=== PATIENT | female | born 1995 | race American Indian/Alaskan Native ===

== ENCOUNTER 2017-02-20 06:24 | Day surgery (SDC) | payer BC ==
[2017-02-20] MEDS ORDERED: ATROPINE 0.1% (CARDIAC) ONE (08:19)
[2017-02-20] MEDS ORDERED: ADRENALIN ONE (08:20)
[2017-02-20] MEDS ORDERED: NITROSTAT SL ONE (08:20)
[2017-02-20] MEDS ORDERED: NACL 0.9% 500 ML 500 ML ONE (08:45)
--- NOTE | 2017-02-20 09:15 | Short Stay Summary ---
Short Stay Documentation Date of service: 02/20/17 - History H&P: obtained from office - Allergies and Medications Current Medications: Allergies coconut Allergy (Severe, Verified 02/20/17 07:07) Itching,swelling shrimp Allergy (Severe, Verified 02/20/17 07:07) Swelling clindamycin Allergy (Intermediate, Verified 02/20/17 07:07) Swelling latex Allergy (Intermediate, Verified 02/20/17 07:07) Swelling Home Medications Medication Instructions Recorded Confirmed Last Taken Type Amlodipine Besylate [Amlodipine 10 mg PO DAILY 02/20/17 02/20/17 02/19/17 History Besylate] Ethinyl Estradiol/Drospirenone 1 tab PO DAILY 02/20/17 02/20/17 02/19/17 History [Janiya 28] - Physical exam General appearance: no acute distress Integumentary: no rash HEENT: Atraumatic Lungs: Clear to auscultation Breasts: deferred Heart: Regular rate Gastrointestinal: normal Female Genitourinary: deferred Rectal Exam: deferred Extremities: no ischemia Neurological: Normal gait - Brief post op/procedure progress note Date of procedure: 02/20/17 Pre-op diagnosis: Syncope Post-op diagnosis: same Procedure: TTT Anesthesia: none Findings: See report Surgeon: ZENAIDA CHRISTENSEN Estimated blood loss: none Pathology: none Condition: stable - Hospital course Hospital course: Uneventful - Disposition Condition at discharge: Good Disposition: DC-01 TO HOME OR SELFCARE Short Stay Discharge Plan Activity: advance as tolerated Weight Bearing Status: Weight Bear as Tolerated Diet: low salt
[2017-02-20 09:26] VITALS: BP 137/65
--- NOTE | 2017-02-20 11:14 | Procedure Note ---
TILT TABLE TEST INDICATION FOR PROCEDURE: Syncope. ORDERING PHYSICIAN: Shyam Ferraro MD DESCRIPTION OF PROCEDURE: After obtaining written consent, the patient was brought to the porcelain enamel laborer area. The patient was securely placed on the tilt table test. The patient's blood pressure prior to tilting was 135/80 with a heart rate of 78 beats per minute. The patient was tilted to 85 degrees from horizontal. Ten minutes after tilting, her blood pressure was 144/96 with a heart rate of 80 beats per minute and no arrhythmias were recorded. The patient was given 0.4 mg of sublingual nitroglycerin. She was monitored for another 10 minutes in the upright position. The lowest recorded blood pressure was 135/91 and the highest recorded heart rate was 104 beats per minute, sinus tachycardia. The patient did not lose consciousness. She did feel dizzy. There were no episodes of bradycardia recorded. The patient was tilted back to horizontal with a blood pressure of 175/89 and a heart rate of 100 at the end of the procedure. IMPRESSION: This is a negative tilt table test with no evidence of a cardioinhibitory or vasodepressor response to nitroglycerin. RECOMMENDATION: Follow up with referring business operations director. JOB# [id number] DONNELL/CELIO
== END 2017-02-20 09:40 | disposition home or self-care (01) ==
LOC: CATHLABREC 06:24
PROVIDERS: ATTEND Internal Medicine
DX: R55 Syncope and collapse (principal); R00.2 Palpitations; Z88.1 Allergy status to other antibiotic agents; Z91.040 Latex allergy status; Z91.013 Allergy to seafood; Z91.018 Allergy to other foods
CPT/HCPCS: 93660; J7040; J0171; J0461

== ENCOUNTER 2020-11-21 06:46 | Emergency (ER) | payer SELFPAY ==
[2020-11-21 07:20] VITALS: BP 145/98
[2020-11-21] MEDS ORDERED: CYCLOBENZAPRINE 10 MG TAB PO ONE (11:07)
[2020-11-21] MEDS ORDERED: METOCLOPRAMIDE 10 MG/2 ML INJ IV ONE (11:07)
[2020-11-21] MEDS ORDERED: SODIUM CHLORIDE 0.9% 1000 ML 1,000 ML IV ONE (11:07)
[2020-11-21] MEDS ORDERED: diphenhydrAMINE 25 MG CAP PO ONE (11:08)
--- NOTE | 2020-11-21 11:11 | Emergency Department Report ---
HPI - General Chief Complaint: Headache Time Seen by Provider: 11/21/20 11:05 - HPI HPI: 25-year-old female with history of SLE currently on no medications presents complaining of a headache which has been ongoing for about 2 weeks. Patient states that it started with a dull ache in the back of her head with soreness/aching in her bilateral neck. This started 2 weeks ago and at the same time she apparently had a dry cough. After couple days she was tested for COVID-19 and the result was negative. However, she is continued to suffer from a persistent headache which she describes as a dull ache in the back of her head radiating to the bilateral nec. She denies any recent trauma. She states that with the headache she feels slightly nauseated but has not vomited. She has been taking ibuprofen 800 mg 4 times daily as well as Tylenol for the headache. This morning when she woke up the headache was particularly severe and she was sick of the ongoing headache so she decided to come in for further evaluation. Other than mild nausea she denies any other associated symptoms including fever/chills, vision change, back pain, chest pain, cough, shortness of breath, sore throat, abdominal pain, vomiting, focal weakness, sensory changes, neck stiffness/difficult with ROM, dysuria, or any other complaints. Her LMP started on Thursday. ED Past Medical Hx - Past Medical History Previous Medical History?: Yes Hx Hypertension: Yes (2012) Hx Heart Attack/AMI: No Hx Congestive Heart Failure: No Hx Diabetes: No Hx Sickle Cell Disease: Yes (Trait) Hx Seizures: Yes (2011) Additional medical history: SLE - Surgical History Past Surgical History?: Yes Hx Cholecystectomy: Yes (2012) - Social History Smoking Status: Former Smoker - Medications Home Medications: Home Medications Medication Instructions Recorded Confirmed Last Taken Type Amlodipine Besylate 10 mg PO DAILY 02/20/17 02/20/17 02/19/17 History Ethinyl Estradiol/Drospirenone 1 tab PO DAILY 02/20/17 02/20/17 02/19/17 History [Janiya 28] Cyclobenzaprine [Flexeril] 10 mg PO TID PRN #21 tablet 11/21/20 Unknown Rx Metoclopramide [Reglan] 10 mg PO TID PRN #15 tab 11/21/20 Unknown Rx ED Review of Systems ROS: Stated complaint: SEVERE HEADACHE Other details as noted in HPI Constitutional: denies: chills, fever Eyes: denies: eye pain, vision change ENT: denies: throat pain, congestion Respiratory: denies: cough, shortness of breath Cardiovascular: denies: chest pain, palpitations Gastrointestinal: nausea. denies: abdominal pain, vomiting, diarrhea, constipation, melena Genitourinary: denies: dysuria, frequency, abnormal menses Musculoskeletal: denies: back pain, joint swelling Skin: denies: rash Neurological: headache. denies: weakness, numbness, paresthesias, confusion, vertigo Physical Exam - Physical Exam Vital Signs: Vital Signs 11/21/20 07:19 Temperature 98.4 F Pulse Rate 78 Respiratory 18 Rate Blood Pressure 145/98 [Right] O2 Sat by Pulse 100 Oximetry Physical Exam: GENERAL: Well developed and well nourished. No acute distress HEENT: Normocephalic. No obvious signs of trauma. Slightly dry mucous membranes. EYES: Extraocular movements are intact. Pupils are equal round and reactive to light bilaterally NECK: Supple. FROM is intact. Trachea is midline. LUNGS: Nonlabored breathing. Equal chest rise bilaterally. Clear to auscultation bilaterally. HEART/CARDIOVASCULAR: Regular rate and rhythm. No murmurs or rubs. VASCULAR: 2+ peripheral pulses. Cap refill < 2 seconds ABDOMEN: Abdomen is soft and nondistended. There is no significant tenderness, guarding or rebound. SKIN: Skin is warm and dry NEURO: Patient is awake, alert, and oriented. batter out II-XII grossly intact. No focal deficits. Normal motor and sensory exam throughout. Normal speech. Normal FNF MUSCULOSKELETAL: No obvious deformities. No significant tenderness. Normal ROM throughout. BACK/SPINE: No midline tenderness or step-offs of the C/T/L spine. Minimal if any tenderness over the bilateral paraspinous muscles in the cervical region ED Course Vital Signs 11/21/20 07:19 Temperature 98.4 F Pulse Rate 78 Respiratory 18 Rate Blood Pressure 145/98 [Right] O2 Sat by Pulse 100 Oximetry ED Medical Decision Making - Lab Data Result diagrams: 11/21/20 11:17 11/21/20 11:17 Lab Results 11/21/20 11/21/20 11/21/20 Range/Units 11:17 11:17 11:17 WBC 5.9 (4.5-11.0) K/mm3 RBC 4.27 (3.65-5.03) M/mm3 Hgb 12.1 (10.1-14.3) gm/dl Hct 36.1 (30.3-42.9) % MCV 85 (79-97) fl MCH 28 (28-32) pg MCHC 34 (30-34) % RDW 16.1 H (13.2-15.2) % Plt Count 434 (140-440) K/mm3 Lymph % (Auto) 22.7 (13.4-35.0) % Liberty % (Auto) 7.9 H (0.0-7.3) % Eos % (Auto) 0.4 (0.0-4.3) % Baso % (Auto) 1.0 (0.0-1.8) % Lymph # (Auto) 1.3 (1.2-5.4) K/mm3 Liberty # (Auto) 0.5 (0.0-0.8) K/mm3 Eos # (Auto) 0.0 (0.0-0.4) K/mm3 Baso # (Auto) 0.1 (0.0-0.1) K/mm3 Seg Neutrophils % 68.0 (40.0-70.0) % Seg Neutrophils # 4.0 (1.8-7.7) K/mm3 Sodium 140 (137-145) mmol/L Potassium 4.0 (3.6-5.0) mmol/L Chloride 105.6 (98-107) mmol/L Carbon Dioxide 24 (22-30) mmol/L Anion Gap 14 mmol/L BUN 11 (7-17) mg/dL Creatinine 0.8 (0.6-1.2) mg/dL Estimated GFR > 60 ml/min BUN/Creatinine Ratio 14 % Glucose 100 (65-100) mg/dL Calcium 8.8 (8.4-10.2) mg/dL Total Bilirubin < 0.20 (0.1-1.2) mg/dL Direct Bilirubin < 0.2 (0-0.2) mg/dL Indirect Bilirubin 0.0 mg/dL AST 22 (5-40) units/L ALT 30 (7-56) units/L Alkaline Phosphatase 67 (35-129) units/L Total Protein 7.3 (6.3-8.2) g/dL Albumin 4.2 (3.9-5) g/dL Albumin/Globulin Ratio 1.4 % HCG, Qual Negative (Negative) Urine Color (Yellow) Urine Turbidity (Clear) Urine pH (5.0-7.0) Ur Specific [place] (1.003-1.030) Urine Protein (Negative) mg/dL Urine Glucose (UA) (Negative) mg/dL Urine Ketones (Negative) mg/dL Urine Blood (Negative) Urine Nitrite (Negative) Urine Bilirubin (Negative) Urine Urobilinogen (<2.0) mg/dL Ur Leukocyte Esterase (Negative) Urine WBC (Auto) (0.0-6.0) /HPF Urine RBC (Auto) (0.0-6.0) /HPF U Epithel Cells (Auto) (0-13.0) /HPF Urine Mucus /HPF 11/21/20 Range/Units Unknown WBC (4.5-11.0) K/mm3 RBC (3.65-5.03) M/mm3 Hgb (10.1-14.3) gm/dl Hct (30.3-42.9) % MCV (79-97) fl MCH (28-32) pg MCHC (30-34) % RDW (13.2-15.2) % Plt Count (140-440) K/mm3 Lymph % (Auto) (13.4-35.0) % Liberty % (Auto) (0.0-7.3) % Eos % (Auto) (0.0-4.3) % Baso % (Auto) (0.0-1.8) % Lymph # (Auto) (1.2-5.4) K/mm3 Liberty # (Auto) (0.0-0.8) K/mm3 Eos # (Auto) (0.0-0.4) K/mm3 Baso # (Auto) (0.0-0.1) K/mm3 Seg Neutrophils % (40.0-70.0) % Seg Neutrophils # (1.8-7.7) K/mm3 Sodium (137-145) mmol/L Potassium (3.6-5.0) mmol/L Chloride (98-107) mmol/L Carbon Dioxide (22-30) mmol/L Anion Gap mmol/L BUN (7-17) mg/dL Creatinine (0.6-1.2) mg/dL Estimated GFR ml/min BUN/Creatinine Ratio % Glucose (65-100) mg/dL Calcium (8.4-10.2) mg/dL Total Bilirubin (0.1-1.2) mg/dL Direct Bilirubin (0-0.2) mg/dL Indirect Bilirubin mg/dL AST (5-40) units/L ALT (7-56) units/L Alkaline Phosphatase (35-129) units/L Total Protein (6.3-8.2) g/dL Albumin (3.9-5) g/dL Albumin/Globulin Ratio % HCG, Qual (Negative) Urine Color Yellow (Yellow) Urine Turbidity Clear (Clear) Urine pH 5.0 (5.0-7.0) Ur Specific [place] 1.016 (1.003-1.030) Urine Protein <15 mg/dl (Negative) mg/dL Urine Glucose (UA) Neg (Negative) mg/dL Urine Ketones Neg (Negative) mg/dL Urine Blood Lg (Negative) Urine Nitrite Neg (Negative) Urine Bilirubin Neg (Negative) Urine Urobilinogen < 2.0 (<2.0) mg/dL Ur Leukocyte Esterase Neg (Negative) Urine WBC (Auto) 2.0 (0.0-6.0) /HPF Urine RBC (Auto) 40.0 (0.0-6.0) /HPF U Epithel Cells (Auto) 2.0 (0-13.0) /HPF Urine Mucus Few /HPF - Medical Decision Making 25-year-old female presenting with 2 weeks of headache with tension in her neck. Symptoms have been ongoing over that period of time and are accompanied by s ome mild nausea but no vomiting. Patient has been taking a large amount of ibuprofen and Tylenol with only intermittent relief. She came in today because she is sick of having the headache. The patient was already tested for COVID-19 and was negative. On initial assessment, she is afebrile and with normal vital signs. She is in no acute distress. She has a nonfocal neurologic exam. Her neck is supple and with full range of motion. She has no mid spinal tenderness of the C/T/L-spine. The remainder of her exam is within normal limits. I explained that given normal neurologic exam and no concerning signs or symptoms, there is no indication for CT of the head at this time. We will perform work- up with basic labs and a test. We will give 1 L of IV fluids, 10 mg of IV Reglan, 25 mg of diphenhydramine, and 10 mg of Flexeril and will re- assess. The patient was educated about minimizing her use of ibuprofen so as to not cause irritation of her stomach lining. She expressed understanding and agreement. Labs have resulted and reveal no significant leukocytosis or anemia. Creatinine is within normal range and there are no significant electrolyte abnormalities. When I went to reassess the patient at 12:18 PM, she had just had the IV placed and had not received the medications yet. She reports her headache is no worse but also no better at this time. Will reassess once patient has received the ordered treatments. At 1 PM, the nurse alerted me that the patient received the Reglan, Benadryl, and Flexeril but her IV infiltrated and therefore she did not receive the IV fluids. When I went to reassess the patient she states that her nausea is completely resolved and her headache is improved. She has just urinated we will send the sample for urinalysis. Patient was encouraged to drink copious fluids. All labs have returned and are within normal limits. Urinalysis shows RBCs consistent with the patient being on her menstrual period. She reports at 2:30 PM that her headache has resolved and she wants to go home. She will be prescribed a small amount of Flexeril and Reglan to take at home as needed. She was instructed to follow-up as soon as possible with a primary care doctor. She was given strict return precautions to come back to the ER including stiff neck, high fever, worsening symptoms, or any other new complaints. The patient was told that should she develop abnormal movements and or antsy agitation taking the Reglan she should take 25 mg of Benadryl. Patient expressed understanding agreement with this plan of care. Critical care attestation.: If time is entered above; I have spent that time in minutes in the direct care of this critically ill patient, excluding procedure time. ED Disposition Clinical Impression: Dehydration Headache Qualifiers: Intractability: intractable Disposition: DC-01 TO HOME OR SELFCARE Is pt being admited?: No Condition: Stable Instructions: Dehydration, Adult, [id number], General Headache Without Cause, Tension Headache, Adult, [id number], Rehydration, Adult Additional Instructions: Please follow-up with your primary care doctor in 2 to 3 days or sooner. Should you develop abnormal uncontrolled movements or feeling of antsiness after t aking the Reglan please take Benadryl to 25 mg. Please keep in mind that Benadryl will make you drowsy and you should not operate machinery or vehicles while taking it. Please return to the emergency department should you develop worsening symptoms, inability to tolerate food or liquids, high fever or any other concerns Prescriptions: Cyclobenzaprine [Flexeril] 10 mg PO TID PRN #21 tablet PRN Reason: Muscle Spasm Metoclopramide [Reglan] 10 mg PO TID PRN #15 tab PRN Reason: Nausea Referrals: [facility] [Provider Group] - 3-5 Days
[2020-11-21 11:50] LABS: Basophils # (Auto) 0.1 K/mm3 (0.0-0.1); Eosinophils % (Auto) 0.4 % (0.0-4.3); Hematocrit 36.1 % (30.3-42.9); Hemoglobin 12.1 gm/dl (10.1-14.3); Lymphocytes # (Auto) 1.3 K/mm3 (1.2-5.4); Lymphocytes % (Auto) 22.7 % (13.4-35.0); Mean Corpuscular HGB Conc 34 % (30-34); Mean Corpuscular Volume 85 fl (79-97); Monocytes # (Auto) 0.5 K/mm3 (0.0-0.8); Monocytes % (Auto) 7.9 % (0.0-7.3); Platelet Count 434 K/mm3 (140-440); Red Blood Count 4.27 M/mm3 (3.65-5.03); Red Cell Distribution Width 16.1 % (13.2-15.2)
[2020-11-21 12:00] LABS: Alanine Aminotransferase 30 units/L (7-56); Albumin 4.2 g/dL (3.9-5); BUN/Creatinine Ratio 14; Blood Urea Nitrogen 11 mg/dL (7-17); Calcium 8.8 mg/dL (8.4-10.2); Hemolysis Index 2
[2020-11-21 12:12] LABS: Bilirubin,Direct < 0.2 mg/dL (0-0.2)
[2020-11-21 13:50] LABS: Bilirubin,Urine NEG (Negative); Blood,Urine LG (Negative); Color,Urine Yellow (Yellow); Mucus,Urine FEW /HPF; Protein,Urine <15 mg/dL mg/dL (Negative); Urobilinogen,Urine < 2.0 mg/dL (<2.0)
== END 2020-11-21 15:17 | disposition home or self-care (01) ==
LOC: ED 06:46
DX: E86.0 Dehydration (principal); R51.9 Headache, unspecified; R05 Cough; I10 Essential (primary) hypertension; Z90.49 Acquired absence of other specified parts of digestive tract; Z79.899 Other long term (current) drug therapy; Z91.013 Allergy to seafood; Z91.018 Allergy to other foods; Z88.1 Allergy status to other antibiotic agents; Z91.040 Latex allergy status
CPT/HCPCS: 36415; 80048; 80076; 81001; 84703; 85025; 96361; 96374; 99283; J2765; J7030